=== PATIENT | male | born 1930 | race Caucasian/White ===

== ENCOUNTER 2016-10-11 10:01 | Day surgery (SDC) | payer MEDICARE ==
--- NOTE | ~2016-10-11 | EGD ---
EGD REPORT [facility] [address] [address] NAME: MARCO ALVARADO : [birth year] STATUS : REG [facility]#: [id number] AGE: 85 ADM/REG DATE : 10/11/16 MR#: [id number] REPORT SERV DATE: 10/11/16 DICTATED BY: GREGORY SALVADOR DATE: 10/11/16 REPORT STATUS : Draft TRANSCRIBED BY: [facility] DATE: 10/11/16 Endoscopy Center Patient Name: Marco Alvarado Date of : 1930 Attending MD: GREGORY SALVADOR MD Procedure Date No Time: 10/11/2016 Procedure: Upper GI endoscopy Indications: For therapy of Cruz's esophagus Referring MD: ZI CALLAHAN Medicines: Propofol per Anesthesia Complications: No immediate complications. Procedure: Pre-Anesthesia Assessment: - ASA Grade Assessment: III - A patient with severe systemic disease. After obtaining informed consent, the endoscope was passed under direct vision. Throughout the procedure, the patient's blood pressure, pulse, and oxygen saturations were monitored continuously. The GIF H190 [id number] was introduced through the mouth, and advanced to the second part of duodenum. The upper GI endoscopy was accomplished without difficulty. The patient tolerated the procedure well. Findings: The esophagus and gastroesophageal junction were examined with white light. 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 Nodularity was present at 40 cm. The maximum longitudinal extent of these esophageal mucosal changes was 5 cm in length. Nodular area at 40 emr done with the duette system Estimated blood loss: none. A small hiatus hernia was present. The examined duodenum was normal. 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 - Hiatus hernia. - Normal examined duodenum. Recommendation: - Full liquid diet for 2 days. - Continue present medications. - No aspirin, ibuprofen, naproxen, or other non-steroidal anti-inflammatory drugs for 5 days after biopsy. EGD REPORT [address] [address] NAME: MARCO ALVARADO : [birth year] STATUS : REG [facility]#: [id number] AGE: 85 ADM/REG DATE : 10/11/16 MR#: [id number] REPORT SERV DATE: 10/11/16 DICTATED BY: GREGORY SALVADOR DATE: 10/11/16 REPORT STATUS : Draft TRANSCRIBED BY: [facility] DATE: 10/11/16 - The findings and recommendations were discussed with the patient and their family. - After the procedure, if you experience any pain in abdomen or chest,shortness of breath,fever,chills,blood in stool,rectal bleeding,vomiting of any material,nausea,black stools or weakness or dizziness, GO TO THE EMERGENCY IMMEDIATELY!!!!!!!!! Procedure Code(s): --- Professional --- 03708, Esophagogastroduodenoscopy, flexible, transoral; diagnostic, including collection of specimen(s) by brushing or washing, when performed (separate procedure) Diagnosis Code(s): --- Professional --- K22.70, Cruz's esophagus without dysplasia K44.9, Diaphragmatic hernia without obstruction or gangrene CPT copyright 2013 [employer]. All rights reserved. The codes documented in this report are preliminary and upon natural resource officer review may be revised to meet current compliance requirements. Gregory Salvador MD GREGORY SALVADOR MD 10/11/2016 12:20 PM This report has been signed electronically. Number of Addenda: 0 Note Initiated On: 10/11/2016 11:28 AM Scope Withdrawal Time 0 hours 0 minutes 0 seconds [id number] [place] [id number]
--- NOTE | ~2016-10-11 | EGD ---
EGD REPORT [facility] [address] [address] NAME: MARCO ALVARADO : [birth year] STATUS : REG [facility]#: [id number] AGE: 85 ADM/REG DATE : 10/11/16 MR#: [id number] REPORT SERV DATE: 10/11/16 DICTATED BY: GREGORY SALVADOR DATE: 10/11/16 REPORT STATUS : Draft TRANSCRIBED BY: [facility] DATE: 10/11/16 Endoscopy Center Patient Name: Marco Alvarado Date of : 1930 Attending MD: GREGORY SALVADOR MD Procedure Date No Time: 10/11/2016 Procedure: Upper GI endoscopy Indications: For therapy of Cruz's esophagus Referring MD: ZI CALLAHAN Medicines: Propofol per Anesthesia Complications: No immediate complications. Procedure: Pre-Anesthesia Assessment: - ASA Grade Assessment: III - A patient with severe systemic disease. After obtaining informed consent, the endoscope was passed under direct vision. Throughout the procedure, the patient's blood pressure, pulse, and oxygen saturations were monitored continuously. The GIF H190 [id number] was introduced through the mouth, and advanced to the second part of duodenum. The upper GI endoscopy was accomplished without difficulty. The patient tolerated the procedure well. Findings: The esophagus and gastroesophageal junction were examined with white light. 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 Nodularity was present at 40 cm. The maximum longitudinal extent of these esophageal mucosal changes was 5 cm in length. Nodular area at 40 emr done with the duette system Estimated blood loss: none. A small hiatus hernia was present. The examined duodenum was normal. 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 - Hiatus hernia. - Normal examined duodenum. Recommendation: - Full liquid diet for 2 days. - Continue present medications. - No aspirin, ibuprofen, naproxen, or other non-steroidal anti-inflammatory drugs for 5 days after biopsy. EGD REPORT [address] [address] NAME: MARCO ALVARADO : [birth year] STATUS : REG [facility]#: [id number] AGE: 85 ADM/REG DATE : 10/11/16 MR#: [id number] REPORT SERV DATE: 10/11/16 DICTATED BY: GREGORY SALVADOR DATE: 10/11/16 REPORT STATUS : Draft TRANSCRIBED BY: [facility] DATE: 10/11/16 - The findings and recommendations were discussed with the patient and their family. - After the procedure, if you experience any pain in abdomen or chest,shortness of breath,fever,chills,blood in stool,rectal bleeding,vomiting of any material,nausea,black stools or weakness or dizziness, GO TO THE EMERGENCY IMMEDIATELY!!!!!!!!! Procedure Code(s): --- Professional --- 80085, Esophagogastroduodenoscopy, flexible, transoral; diagnostic, including collection of specimen(s) by brushing or washing, when performed (separate procedure) Diagnosis Code(s): --- Professional --- K22.70, Cruz's esophagus without dysplasia K44.9, Diaphragmatic hernia without obstruction or gangrene CPT copyright 2013 [employer]. All rights reserved. The codes documented in this report are preliminary and upon party plan selling distributor review may be revised to meet current compliance requirements. Gregory Salvador MD GREGORY SALVADOR MD 10/11/2016 12:20 PM This report has been signed electronically. Number of Addenda: 0 Note Initiated On: 10/11/2016 11:28 AM Scope Withdrawal Time 0 hours 0 minutes 0 seconds [id number] [place] [id number]
--- NOTE | ~2016-10-11 | OP ---
Record Of Operation [facility] [address] [place]. [address] NAME: TORI LOZADA : [birth year] STATUS : REG [facility]#: [id number] AGE: 85 ADM/REG DATE : 10/11/16 MR#: [id number] REPORT SERV DATE: 10/11/16 DICTATED BY: GREGORY SALVADOR DATE: 10/11/16 REPORT STATUS : Draft TRANSCRIBED BY: MOD[employer] DATE: 10/11/16 DATE OF PROCEDURE: 10/11/2016 PROCEDURE: Esophagogastroduodenoscopy and endoscopic mucosal resection. INDICATION: Patient with a history of nodular Cruz's with high-grade dysplasia. SEDATION: Diprivan. FINDINGS: Risks including perforation, bleeding, and were explained to the patient, he consents. After obtaining informed consent, the endoscope was advanced to the esophagus. There was Cruz's between 35 cm and 40 cm. The nodular area at 40 cm was visualized. There was a small hiatal hernia. The rest of his GI tract was negative. The endoscope was withdrawn. Then using the Duette system, the cap was placed. The area of nodularity was suctioned in and a band was placed. Using a hot snare, the area was removed. The specimen was retrieved. There was no bleeding, and there was appropriate depth of the resection. The patient tolerated the procedure well. IMPRESSION: Successful Duette of the nodular Cruz's at 40 cm. No unexpected findings before or after the procedure. /RUBEN Gregory Salvador M.D. / [id number] CC: Molly Ross M.D.
[~2016-10-11 10:01] MED LIST: ALLER-TEC PO; ASAEC PO; AVODART PO; CENTRUM PO; FISH-EPA1000 MG PO; FLONASE NAS; LIPITOR10 PO; MELATONIN5 M1 PO; NASONEX NAS; NEXIUM40 PO; PRILO PO; REFRESH GEL OPH; REFRESH OPH SO0.3 ML OPH; RESTASIS OPH; TOPXL25 PO; TOPXL50 PO; ZOCOR20 PO; ZYRTEC ALLGY10 MG PO
== END 2016-10-11 23:59 | disposition home or self-care (01) ==
LOC: DMU 10:01
PROVIDERS: Internal Medicine Gastroenterology
PROC: 0DB58ZX Excision of Esophagus, Via Natural or Artificial Opening Endoscopic, Diagnostic (ICD-10-PCS; principal; 2016-10-11 11:30)
DX: K22.711 Barrett's esophagus with high grade dysplasia (principal); I10 Essential (primary) hypertension; I25.2 Old myocardial infarction; E78.5 Hyperlipidemia, unspecified; Z88.1 Allergy status to other antibiotic agents; Z91.041 Radiographic dye allergy status; Z88.5 Allergy status to narcotic agent; Z79.82 Long term (current) use of aspirin; Z79.899 Other long term (current) drug therapy; Z98.41 Cataract extraction status, right eye; Z98.42 Cataract extraction status, left eye; Z98.890 Other specified postprocedural states
CPT/HCPCS: 88305; 88342

== ENCOUNTER 2016-11-03 12:29 | Emergency (ER) | payer MEDICARE ==
[2016-11-03 13:35] LABS: BASOPHILS 0.2 %; BASOPHILS ABSOLUTE 0.02 10/3/uL (0.0-0.16); EOSINOPHILS 0.6 %; EOSINOPHILS ABSOLUTE 0.07 10/3/uL (0.0-0.53); HEMATOCRIT 49.9 % (40.0-51.0); HEMOGLOBIN 16.8 g/dL (13.6-17.8); IMMATURE GRANULOCYTES 0.4 %; IMMATURE GRANULOCYTES ABSOLUTE 0.05 10/3/uL (0.0-0.11); LYMPHOCYTES 6.6 %; LYMPHOCYTES ABSOLUTE 0.84 10/3/uL (0.67-4.30); MEAN CORPUS HGB CONC 33.7 g/dL (32.0-36.0); MEAN CORPUSCULAR HEMOGLOB 30.8 pg (26.0-34.0); MEAN PLATELET VOLUME 9.4 fL (9.2-13.0); MONOCYTES 5.9 %; MONOCYTES ABSOLUTE 0.75 10/3/uL (0.21-1.20); NEUTROPHILS 86.3 %; NEUTROPHILS ABSOLUTE 10.94 10/3/uL (2.02-8.40); PLATELET COUNT 266 10/3/uL (150-400); RBC DISTRIBUTION WIDTH 13.2 % (12.0-16.0); RED CELL COUNT 5.45 10/6/uL (4.7-6.1)
[2016-11-03 13:37] LABS: ER CBC TAT 0 Hrs 05 Mins; MANUAL DIFF NO %; MEAN CORPUSCULAR VOLUME 91.6 fL (80-100); WHITE BLOOD CELLS 12.7 10/3/uL (4.5-10.5)
[2016-11-03 13:51] LABS: ALBUMIN 3.8 G/DL (3.5-5.0); CALCIUM, SERUM 8.8 MG/DL (8.5-10.4); CHLORIDE, SERUM 105 MMOL/L (96-112); CREATININE 1.26 MG/DL (0.70-1.30); GFR AFRICAN AMERICAN 59 ML/MIN (>=60); GFR NON AFRICAN AMERICAN 51 ML/MIN (>=60); POTASSIUM, SERUM 4.5 MMOL/L (3.5-5.3); SGOT(AST) 21 U/L (5-40); SGPT(ALT) 21 U/L (5-65); SODIUM, SERUM 141 MMOL/L (135-148)
[2016-11-03 13:53] LABS: A/G RATIO 1.2 (0.7-1.9); ALKALINE PHOSPHATASE 99 U/L (45-117); BUN (BLOOD UREA NITROGEN) 17 MG/DL (6-23); CO2 (CARBON DIOXIDE) 30 MMOL/L (24-34); GLOBULIN 3.2 G/DL (2.5-4.1); GLUCOSE, SERUM 84 MG/DL (60-99); TOTAL BILIRUBIN 0.7 MG/DL (0-1.2)
[2016-11-03 13:54] LABS: ASCORBIC ACID (UR NOT ORDER) 40 (NEG); BILIRUBIN, URINE NEGATIVE (NEG); ER URINALYSIS TAT 0 Hrs 22 Mins; KETONE, URINE TRACE MG/DL (NEG); LEUKOCYTE ESTERASE(NOT OR NEG (NEG); NITRITE (URINE) NEG (NEG); WBC (NOT ORDERED) (RFLEX) < 1 (0-5)
== END 2016-11-03 17:06 | disposition home or self-care (01) ==
LOC: ER 12:29
PROVIDERS: Emergency Medicine
DX: K59.00 Constipation, unspecified (principal); K80.80 Other cholelithiasis without obstruction; I10 Essential (primary) hypertension; I25.2 Old myocardial infarction; Z91.041 Radiographic dye allergy status; Z88.1 Allergy status to other antibiotic agents; Z79.82 Long term (current) use of aspirin
CPT/HCPCS: 74176; 76705; 80053; 81001; 83690; 85025; 99284